=== PATIENT | female | born 1980 | race Caucasian/White ===

== ENCOUNTER 2022-09-03 08:45 | Outpatient (CLI) | payer BC | END 2022-09-03 08:46 | disposition home or self-care (01) | LOC: PET 08:45 | PROVIDERS: ATTEND Internal Medicine Hematology & Oncology | DX: C50.812 Malignant neoplasm of overlapping sites of left female breast (principal) | CPT/HCPCS: 78815; A9552 ==

== ENCOUNTER 2023-03-19 10:42 | Outpatient (CLI) | payer BC | END 2023-03-19 10:43 | disposition home or self-care (01) | LOC: SCSRAD 10:42 | PROVIDERS: ATTEND Family Medicine | DX: R07.9 Chest pain, unspecified (principal) | CPT/HCPCS: 71046 ==

== ENCOUNTER 2023-03-20 11:37 | Observation (INO) | payer BC ==
[2023-03-20 12:09] LABS: #Eosinphils 0.1 thou/uL (0.0-0.7); #Monocytes 0.8 thou/uL (0.11-0.59); #Neutrophils 8.3 thou/uL (1.40-6.50); %Basophils 0.2 % (0.0-1.0); %Eosinophils 0.9 % (0.0-10.0); %Lymphocytes 5.2 % (21.0-51.0); %Monocytes 7.7 % (0.0-10.0); %Neutrophils 85.6 % (42.0-75.0); Hemoglobin 14.1 g/dL (12.0-16.0); Mean Corpuscular HGB CONC 34.4 g/dL (32.0-36.0); Mean Corpuscular Volume 90.1 fl (78.0-98.0); Platelet Count 192 10x3/uL (130-400); RBC Distribution Width 12.3 % (11.5-14.5); Red Blood Cell (RBC) Count 4.55 mill/uL (4.20-5.40); White Blood Cell (WBC) Count 9.7 10x3/uL (4.8-10.8)
[2023-03-20 12:24] LABS: BHCG - Serum Negative (NEGATIVE); Pregs Control Background? CLEAR/WHITE (CLR/WHITE); Pregs Control Bar Appear? YES (CONTROL BAR)
[2023-03-20 12:35] LABS: ALT (SGPT) 23 U/L (8-55); AST (SGOT) 18 U/L (5-34); Albumin 4.6 g/dL (3.5-5.0); Alkaline Phosphatase 70 U/L (40-110); Anion Gap 14 mmol/L (10-20); BUN (Urea Nitrogen) 10 mg/dL (7.0-18.7); Bilirubin, Total 0.6 mg/dL (0.2-1.2); Calc. Creatinine Clearance 0 mL/min (70-130); Calcium 9.7 mg/dL (7.8-10.44); Carbon Dioxide 25 mmol/L (22-29); Chloride 102 mmol/L (98-107); Estimated GFR 104; Globulin 3.4 g/dL (2.4-3.5); Glucose 117 mg/dL (70-105); Lipase 4 U/L (8-78); Potassium 3.6 mmol/L (3.5-5.1); Sodium 137 mmol/L (136-145)
[2023-03-20] MEDS ORDERED: Morphine 4 MG/ML VIAL ONE (13:15)
[2023-03-20] MEDS ORDERED: Iopamidol-370 76% 500 ML MDV (1 ML CHARGE) ONE (13:47)
[2023-03-20 17:33] LABS: Troponin I Less than 0.010 ng/mL (< 0.028)
[2023-03-20 18:15] VITALS: BMI 26.2
[2023-03-20] MEDS ORDERED: Ondansetron ODT 4 MG TAB SL PRN (18:45)
[2023-03-20] MEDS ORDERED: Acetaminophen 325 MG TAB PO PRN ×2 (18:45→19:01)
[2023-03-20] MEDS ORDERED: Ondansetron PF 4 MG/2 ML Vial IVP PRN ×2 (18:45→19:01)
[2023-03-20] MEDS ORDERED: Morphine 2 MG/ML VIAL SLOW IVP PRN (19:00)
[2023-03-20] MEDS ORDERED: Ondansetron ODT 4 MG TAB PO PRN (19:01)
[2023-03-20] MEDS ORDERED: Calcium Carbonate 500 MG ChewTAB PO PRN (19:01)
[2023-03-20] MEDS ORDERED: HYDROcodone/Acetaminophen 5/325 mg Tablet PO PRN (19:05)
[2023-03-20] MEDS: Sodium Chloride 0.9% 1,000 ML IV SCH (19:52)
[2023-03-21] MEDS: Sodium Chloride 0.9% 1,000 ML IV SCH (04:00)
[2023-03-21 05:25] LABS: Anion Gap 13 mmol/L (10-20); BUN (Urea Nitrogen) 7 mg/dL (7.0-18.7); Calc. Creatinine Clearance 131 mL/min (70-130); Calcium 8.6 mg/dL (7.8-10.44); Carbon Dioxide 23 mmol/L (22-29); Chloride 106 mmol/L (98-107); Estimated GFR 113; Glucose 113 mg/dL (70-105); Potassium 3.7 mmol/L (3.5-5.1); Sodium 138 mmol/L (136-145)
[2023-03-21 05:27] LABS: Troponin I Less than 0.010 ng/mL (< 0.028)
[2023-03-21 12:09] VITALS: BP 124/77; TEMP 98.5
[2023-03-21] MEDS ORDERED: Iopamidol 370 76% 100 ML VIAL ONE (13:56)
== END 2023-03-21 15:35 | disposition home or self-care (01) ==
LOC: ERS 11:37 → 2SW 16:16
PROVIDERS: ADMIT Internal Medicine; ATTEND Family Medicine
PROC: B246ZZ4 Ultrasonography of Right and Left Heart, Transesophageal (ICD-10-PCS; principal; 2023-03-20)
DX: R07.2 Precordial pain (principal); K21.9 Gastro-esophageal reflux disease without esophagitis; Z85.3 Personal history of malignant neoplasm of breast; Z79.899 Other long term (current) drug therapy; Z88.6 Allergy status to analgesic agent
CPT/HCPCS: 36415; 71045; 71275; 80048; 80053; 83690; 83735; 83880; 84484; 84703; 85025; 85379; 93005; 93306; 94760; 96372; 96374; G0378; J1650; J2270; J7050; Q9967